=== PATIENT | female | born 1985 | race Caucasian/White ===

== ENCOUNTER → 2018-02-26 13:45 | Outpatient (CLI) | payer OTHER, SELFPAY ==
--- NOTE | 2018-02-26 | DI.RAD.S_ITS ---
PROCEDURE: XR FOOT RT MIN 3V INDICATIONS: BILATERAL FOOT PAIN TECHNIQUE: 3 views of the foot were acquired. COMPARISON: None. FINDINGS: Bones: No fractures or dislocations. No suspicious bony lesions. Soft tissues: No tibiotalar joint effusion. Achilles tendon appears normal. IMPRESSION: No trauma found, no malalignment identified. Source of new pain is not seen. Minimal plantar fascial and Achilles tendon insertion spurring is incidentally noted at the posterior calcaneus. Dictated by: Sergio Valentine M.D. on 02/26/2018 at 15:16 Approved by: Sergio Valentine M.D. on 02/26/2018 at 15:17
--- NOTE | 2018-02-26 | DI.RAD.S_ITS ---
PROCEDURE: XR FOOT LT MIN 3V INDICATIONS: BILATERAL FOOT PAIN TECHNIQUE: 3 views of the foot were acquired. COMPARISON: None. FINDINGS: Bones: No fractures or dislocations. No suspicious bony lesions. Soft tissues: No tibiotalar joint effusion. Achilles tendon appears normal. IMPRESSION: No trauma found, source of foot pain is not seen. Dictated by: Sergio Valentine M.D. on 02/26/2018 at 15:16 Approved by: Sergio Valentine M.D. on 02/26/2018 at 15:16
== END ==
PROVIDERS: PCP Family Medicine; Visit Provider Family Medicine
DX: M79.671 Pain in right foot (principal); M79.672 Pain in left foot
CPT/HCPCS: 73630

== ENCOUNTER → 2018-11-12 14:23 | Outpatient (CLI) | payer OTHER, SELFPAY ==
--- NOTE | 2018-11-12 | DI.MG.S_ITS ---
BILATERAL DIGITAL DIAGNOSTIC MAMMOGRAM 3D/2D: 11/12/2018 CLINICAL: Right breast lump. Baseline exam. No prior exams were available for comparison. The tissue of both breasts is heterogeneously dense. This may lower the sensitivity of mammography. No significant masses, calcifications, or other findings are seen in either breast. IMPRESSION: INCOMPLETE: NEEDS ADDITIONAL IMAGING EVALUATION There is no abnormality seen in the right breast to correspond with the palpable abnormality in the upper inner quadrant, however, ultrasound is recommended. This exam was interpreted at Station ID: [id number]. NOTE: For mammograms, a report in lay terms will be sent to the patient. Approximately 15% of breast malignancies will not be visualized mammographically. In the management of a palpable breast mass, a negative mammogram must not discourage biopsy of a clinically suspicious lesion. Electronically Signed By: Julio Cesar esteves/aquiles:11/12/2018 15:00:21 ACR BI-RADS Category 0: Incomplete [id number]
--- NOTE | 2018-11-12 | DI.US.S_ITS ---
LIMITED ULTRASOUND OF RIGHT BREAST: 11/12/2018 CLINICAL: Palpable right breast lump. No prior exams were available for comparison. Real-time ultrasound of the right breast 2 o'clock region was performed on the area of interest. IMPRESSION: NEGATIVE There is no sonographic evidence of malignancy. There is no abnormality seen in the right breast to correspond with the palpable abnormality at 2 o'clock, however, clinical followup is recommended. This exam was interpreted at Station ID: [id number]. Electronically Signed By: Julio Cesar esteves/aquiles:11/12/2018 15:48:17 letter sent: Clinical Evaluation Ultrasound BI-RADS: 1 Negative
== END ==
PROVIDERS: PCP Family Medicine; Visit Provider Family Medicine
DX: R92.8 Other abnormal and inconclusive findings on diagnostic imaging of breast (principal); N63.12 Unspecified lump in the right breast, upper inner quadrant
CPT/HCPCS: 76642; 77066; G0279

== ENCOUNTER → 2020-07-07 12:12 | Outpatient (CLI) | payer OTHER, SELFPAY ==
--- NOTE | 2020-07-07 | DI.US.S_ITS ---
PROCEDURE: US PELVIC COMPLETE INDICATIONS: IUD PLACEMENT TECHNIQUE: Real-time scanning was performed of the pelvic organs, with image documentation. Additional endovaginal scanning was necessary due to incomplete visualization of the adnexal and endometrial structures by transabdominal scanning. COMPARISON: None. FINDINGS: Uterus: Uterus is normal in size at 6.4 x 4.3 x 5.5 cm. The endometrium measures 3.3 mm in combined thickness. An IUD is seen at its expected location. Ovaries: The right ovary measures 4.1 x 2 x 3.2 cm. The left ovary measures 3.8 x 2.7 x 2.8 cm. The ovaries have a normal sonographic appearance. No adnexal masses are seen. Other: No pathologic free abdominal or pelvic fluid. IMPRESSION: The IUD is seen at its expected location. Dictated by: Saud Rockwell M.D. on 07/07/2020 at 12:25 Approved by: Saud Rockwell M.D. on 07/07/2020 at 12:26
== END ==
PROVIDERS: PCP Family Medicine; Referring Provider Family Medicine; Visit Provider Family Medicine
DX: Z30.431 Encounter for routine checking of intrauterine contraceptive device (principal)
CPT/HCPCS: 76830; 76856

== ENCOUNTER → 2021-08-23 12:43 | Outpatient (CLI) | payer OTHER, SELFPAY ==
--- NOTE | 2021-08-23 | DI.RAD.S_ITS ---
PROCEDURE: XR FOOT RT MIN 3V INDICATIONS: Pain in right foot TECHNIQUE: 3 views of the foot were acquired. COMPARISON: [facility], , XR FOOT RT MIN 3V, 02/26/2018, 13:46. FINDINGS: Bones: No fractures or dislocations. No suspicious bony lesions. Soft tissues: No tibiotalar joint effusion. Achilles tendon appears normal. IMPRESSION: No acute radiographic findings. Dictated by: Eileen Cook M.D. on 08/23/2021 at 14:43 Approved by: Eileen Cook M.D. on 08/23/2021 at 14:43
== END ==
PROVIDERS: PCP Family Medicine; Referring Provider Family Medicine; Visit Provider Family Medicine
DX: M79.671 Pain in right foot (principal)
CPT/HCPCS: 73630

== ENCOUNTER → 2023-07-05 15:29 | Outpatient (CLI) | payer OTHER, SELFPAY ==
--- NOTE | 2023-07-05 | DI.MRI.S_ITS ---
PROCEDURE: MR ANKLE RT WO CON INDICATIONS: PLANTAR FASCIAL FIBROMATOSIS TECHNIQUE: Noncontrast sagittal T1 spin echo and T2 fast spin echo with fat saturation, axial proton density fast spin echo and T2 fast spin echo with fat saturation, coronal T1 spin echo and T2 fast spin echo with fat saturation through the ankle/hindfoot. COMPARISON: [facility], CR, XR CALCANEUS RIGHT, 06/06/2023, 12:52. FINDINGS: Image quality: Excellent. Bones and joints: No acute trabecular bone injury or fracture. No hindfoot coalitions. No osteochondral injuries of the talar dome. Mild spurring seen at the dorsal aspect of the talonavicular joint that may be related to a remote prior injury or degeneration. Medial structures: The deltoid ligament and the spring ligament complex are intact. Mild distal posterior tibialis tenosynovitis. The flexor digitorum longus and flexor hallucis longus tendons are intact. The posterior tibial neurovascular bundle appears normal within the tarsal tunnel, without extrinsic mass effect. Lateral structures: Thickening of the anterior tibiofibular ligament may be secondary to a prior sprain. Posterior tibiofibular ligament is intact. Remote prior low-grade sprains of the anterior talofibular ligament and the calcaneofibular ligament. Posterior talofibular ligament also appears intact. The peroneus longus and brevis tendons demonstrate mild tendinosis and tenosynovitis. A lobular cyst is seen extending superiorly from the lateral sinus tarsi measuring approximately 2.0 x 1.2 x 2.6 cm. Anterior structures: The tibialis anterior, extensor hallucis longus, and extensor digitorum longus tendons appear intact. Posterior and plantar structures: Achilles tendon is intact. Mild focal fluid signal is seen at the origin of the plantar fascia that is suspicious for partial tearing. There is mild adjacent soft tissue and osseous edema. No acute osseous fracture. Findings are superimposed on chronic fascial thickening. No abductor digiti minimi muscle atrophy to suggest Pierre neuropathy. IMPRESSION: 1. Focal partial tearing of the central band of the plantar fascia at the origin with mild surrounding soft tissue and osseous edema. No acute osseous fracture. Findings are superimposed on mild chronic fasciitis. 2. Mild distal posterior tibialis tenosynovitis. 3. Remote prior low-grade sprain of the anterior tibiofibular ligament. Remote low-grade sprains are also seen at the anterior talofibular ligament and the calcaneofibular ligament. 4. Mild peroneus brevis and longus tenosynovitis. Approved by: Ulises Alva M.D. on 07/06/2023 at 12:36
== END ==
PROVIDERS: PCP Family Medicine; Referring Provider Podiatrist; Visit Provider Podiatrist
DX: M72.2 Plantar fascial fibromatosis (principal); S96.811A Strain of other specified muscles and tendons at ankle and foot level, right foot, initial encounter; S93.431A Sprain of tibiofibular ligament of right ankle, initial encounter; S93.491A Sprain of other ligament of right ankle, initial encounter; S93.411A Sprain of calcaneofibular ligament of right ankle, initial encounter; M65.871 Other synovitis and tenosynovitis, right ankle and foot
CPT/HCPCS: 73721

== ENCOUNTER 2023-07-07 04:00 | Emergency (ER) | payer OTHER, SELFPAY ==
[2023-07-07] VITALS (8 sets, daily range): BP systolic 111–142; BP diastolic 63–89; PULSE 57–72; RESP 16–18; TEMP 36.6; O2SAT 97–100; BMI 40.2
--- NOTE | 2023-07-07 04:04 | ED.GENADULT ---
HPI - General Adult <Naty Hardy DO - Last Filed: 07/08/23 01:18> General Chief complaint: Back Pain/Injury Stated complaint: right side/mid back pain Time Seen by Provider: 07/07/23 04:02 Source: patient, RN notes reviewed and old records reviewed Mode of arrival: Ambulatory Limitations: no limitations History of Present Illness HPI narrative: 38-year-old female with history of plantar fasciitis who presents with complaint of sudden onset of right mid back/flank pain that radiates to the front. Patient woke up from sleep at about 230 this morning has been persistent since then. Patient states no fevers or chills. She has had nausea but no vomiting. States no chest pain shortness of breath. Did have some diarrhea like stools earlier but no black or blood. No dysuria, urgency frequency or hematuria that she appreciates. No new vaginal bleeding or discharge. Patient states she has not had similar pain past. She states movement does not seem to make it particularly worse. No rash or skin changes. Denies any daily medications does take meloxicam PRN but rarely. No recent surgeries. No tobacco, occasional alcohol, no recreational drugs. Dr. Ramos is her primary care. Related Data Home Medications Medication Instructions Recorded Confirmed levonorgestrel 21 mcg/24 hours (8 52 mg INTRAU ##0 05/23/16 02/08/22 yrs) 52 mg intrauterine device (Mirena) Previous Rx's Medication Instructions Recorded hydrocodone 5 mg-acetaminophen 325 1 tab PO Q6-8H PRN pain #10 tabs 07/07/23 mg tablet Allergies Allergy/AdvReac Type Severity Reaction Status Date / Time No Known Drug Allergies Allergy Verified 06/08/23 09:22 Review of Systems <Naty Hardy DO - Last Filed: 07/08/23 01:18> Review of Systems ROS Unobtainable: All systems reviewed & are unremarkable except as noted in HPI and below Patient History <Naty Hardy DO - Last Filed: 07/08/23 01:18> Medical History Obstructive sleep apnea of adult Surgical History History of third molar tooth extraction Status post delivery (03/09/16) Social History Smoking Status: Never smoker Smoking Status: Never smoker Exam <Naty Hardy DO - Last Filed: 07/08/23 01:18> Narrative Exam Narrative: GENERAL: Alert and oriented x three, female in moderate distress HEENT: Head normocephalic, atraumatic, EOMI, pupils reactive, face symmetric, moist mucous membranes NECK: Supple, full range of motion CARDIOVASCULAR: Regular rate and rhythm without murmurs, rubs or gallops. RESPIRATORY: Breath sounds equal bilaterally, no wheezes rales or rhonchi. ABDOMEN: Soft, nontender. Normoactive bowel sounds all 4 quadrants. No guarding or rebound, rigidity, no mass, no bruit or pulsatile mass : No CVA tenderness bilaterally EXTREMITIES: Normal range of motion, no clubbing or edema. Neurovascularly intact NEUROLOGICAL: Cranial nerves II through XII grossly intact. Moving all extremities SKIN: Warm, dry, no petechiae, no rashes or lesions. Initial Vital Signs Initial Vital Signs: Vital Signs Temperature 98 F 07/07/23 04:06 Pulse Rate 70 07/07/23 04:06 Respiratory Rate 16 07/07/23 04:06 Blood Pressure 142/89 H 07/07/23 04:06 Pulse Oximetry 100 07/07/23 04:06 Oxygen Delivery Method Room Air 07/07/23 04:06 <Dalia Warren MD - Last Filed: 07/07/23 08:05> Initial Vital Signs Initial Vital Signs: Vital Signs Temperature 98 F 07/07/23 04:06 Pulse Rate 70 07/07/23 04:06 Respiratory Rate 16 07/07/23 04:06 Blood Pressure 142/89 H 07/07/23 04:06 Pulse Oximetry 100 07/07/23 04:06 Oxygen Delivery Method Room Air 07/07/23 04:06 Course <Naty Hardy DO - Last Filed: 07/08/23 01:18> Orders Ordered: Discontinued Medications Acetaminophen (Acetaminophen 325 Mg Tablet) 975 mg PO NOW ONE Stop: 07/07/23 05:36 Last Admin: 07/07/23 07:24 Dose: Not Given Documented By: RB Sodium Chloride (Normal Saline 0.9%) 1,000 mls @ 1,000 mls/hr IV BOLUS ONE Stop: 07/07/23 05:23 Last Infusion: 07/07/23 05:49 Dose: Infused Documented By: Admin: 07/07/23 04:43 Dose: 1,000 mls/hr Documented By: GC Ketorolac Tromethamine (Ketorolac 30 Mg/Ml Vial) 15 mg IV NOW ONE Stop: 07/07/23 04:25 Last Admin: 07/07/23 04:42 Dose: 15 mg Documented By: GC Morphine Sulfate (Morphine 2 Mg/Ml Inj) 2 mg IV NOW ONE Stop: 07/07/23 05:33 Last Admin: 07/07/23 07:24 Dose: Not Given Documented By: RB Morphine Sulfate (Morphine 4 Mg/Ml Inj) 4 mg IV NOW ONE Stop: 07/07/23 05:45 Last Admin: 07/07/23 05:49 Dose: 4 mg Documented By: VALERIA Vital Signs Vital signs: Vital Signs - 8 hr 07/07/23 04:06 07/07/23 05:45 07/07/23 06:00 Temperature 98 F Pulse Rate 70 72 62 Respiratory Rate 16 18 16 Blood Pressure 142/89 H 131/72 125/71 Pulse Oximetry 100 99 98 Oxygen Delivery Method Room Air Room Air Room Air 07/07/23 06:30 07/07/23 07:00 Temperature Pulse Rate 57 L 71 Respiratory Rate 16 16 Blood Pressure 113/67 111/63 Pulse Oximetry 97 97 Oxygen Delivery Method Room Air Room Air <Dalia Warren MD - Last Filed: 07/07/23 08:05> Orders Ordered: Discontinued Medications Acetaminophen (Acetaminophen 325 Mg Tablet) 975 mg PO NOW ONE Stop: 07/07/23 05:36 Last Admin: 07/07/23 07:24 Dose: Not Given Documented By: RB Sodium Chloride (Normal Saline 0.9%) 1,000 mls @ 1,000 mls/hr IV BOLUS ONE Stop: 07/07/23 05:23 Last Infusion: 07/07/23 05:49 Dose: Infused Documented By: Admin: 07/07/23 04:43 Dose: 1,000 mls/hr Documented By: GC Ketorolac Tromethamine (Ketorolac 30 Mg/Ml Vial) 15 mg IV NOW ONE Stop: 07/07/23 04:25 Last Admin: 07/07/23 04:42 Dose: 15 mg Documented By: GC Morphine Sulfate (Morphine 2 Mg/Ml Inj) 2 mg IV NOW ONE Stop: 07/07/23 05:33 Last Admin: 07/07/23 07:24 Dose: Not Given Documented By: RB Morphine Sulfate (Morphine 4 Mg/Ml Inj) 4 mg IV NOW ONE Stop: 07/07/23 05:45 Last Admin: 07/07/23 05:49 Dose: 4 mg Documented By: DK Vital Signs Vital signs: Vital Signs - 8 hr 07/07/23 04:06 07/07/23 05:45 07/07/23 06:00 Temperature 98 F Pulse Rate 70 72 62 Respiratory Rate 16 18 16 Blood Pressure 142/89 H 131/72 125/71 Pulse Oximetry 100 99 98 Oxygen Delivery Method Room Air Room Air Room Air 07/07/23 06:30 07/07/23 07:00 Temperature Pulse Rate 57 L 71 Respiratory Rate 16 16 Blood Pressure 113/67 111/63 Pulse Oximetry 97 97 Oxygen Delivery Method Room Air Room Air Medical Decision Making <Naty Hardy, - Last Filed: 07/08/23 01:18> Lab Data 07/07/23 04:35 07/07/23 04:35 Labs: Lab Results 07/07/23 07/07/23 Range/Units 04:30 04:35 WBC 7.5 (4.5-11.0) X10^3/uL RBC 4.37 (4.0-5.2) X10^6/uL Hgb 13.2 (12.0-16.0) g/dL Hct 38.8 (36-46) % MCV 89.0 (80-100) fL MCH 30.2 (26-34) PG MCHC 33.9 (30-36) % RDW 13.3 (11.6-14.8) % Plt Count 166 (150-400) X10^3/uL Neut % (Auto) 58.8 (50-75) % Lymph % (Auto) 31.0 (25-40) % [place] % (Auto) 7.7 (3-14) % Eos % (Auto) 2.1 (2-4) % Baso % (Auto) 0.4 (0-2) % Neut # (Auto) 4400 (4405-2619) /uL Lymph # (Auto) 2300 (6159-8452) /uL [place] # (Auto) 600 (0-900) /uL Eos # (Auto) 200 (0-450) /uL Baso # (Auto) 0 (0-100) /uL Sodium 140 (137-145) mmol/L Potassium 4.3 (3.4-5.1) mmol/L Chloride 107 (98-107) mmol/L Carbon Dioxide 24 (22-32) mmol/L BUN 12 (7-17) mg/dL Creatinine 0.72 (0.52-1.04) mg/dL Estimated GFR > 60 (>60) mL/min BUN/Creatinine Ratio 16.7 (6-22) Glucose 111 H (70-100) mg/dL Calcium 9.6 (8.4-10.2) mg/dL Total Bilirubin 0.4 (0.2-1.3) mg/dL AST 28 (14-36) IU/L ALT 33 (<35) IU/L Alkaline Phosphatase 59 (38-126) U/L Total Protein 7.5 (6.3-8.2) g/dL Albumin 4.2 (3.5-5.0) g/dL Globulin 3.3 (1.7-4.1) g/dL Albumin/Globulin Ratio 1.3 (1.0-2.8) Lipase 80 (23-300) U/L Urine RBC None seen (0-5/HPF) Urine WBC None seen (0-5/HPF) Ur Squamous Epith Cells 0-1 /hpf (0-5/HPF) Urine Bacteria None seen (None) Ur Culture Indicated? Cult not indicated Vol Urine Centrifuged 10ml (spun) Point of Care Testing Test Results Negative Urine Dip Bedside Urine Glucose Negative Bedside Urine Bilirubin - Negative Bedside Urine Ketone - Negative Urine Specific [place] 1.025 Bedside Urine Occult Blood +/- Bedside Urine pH 6.0 Bedside Urine Protein - Negative Bedside Urine Urobilinogen - Negative Bedside Urine Nitrite - Negative Bedside Urine Leukocytes - Negative Esterase Point of care testing: Point of Care Testing Test Results Negative Urine Dip Bedside Urine Glucose Negative Bedside Urine Bilirubin - Negative Bedside Urine Ketone - Negative Urine Specific [place] 1.025 Bedside Urine Occult Blood +/- Bedside Urine pH 6.0 Bedside Urine Protein - Negative Bedside Urine Urobilinogen - Negative Bedside Urine Nitrite - Negative Bedside Urine Leukocytes - Negative Esterase MDM Narrative Medical decision making narrative: Patient signed out to Dr. Warren while awaiting CT KUB. Patient's labs overall appropriate, urine was negative was negative. Patient had some improvement with Toradol but still painful had Tylenol followed by narcotic pain medication in the feels much better afterwards. CC: Right-sided flank and mid back pain Complicating co-morbidities: Data collected from: patient Medical records reviewed: [employer] visit for IUD removal on June 08 of this year as well as sleep study neurologic visits from 2021 are reviewed Differential considered: Kidney stone, UTI, pyelonephritis, endomyometritis after IUD removal almost 1 month after procedure, pelvic inflammatory disease, ovarian torsion, ovarian cyst, appendicitis Exam documented above, pertinent findings include: Initially had right upper quadrant radiating to the back and right flank pain. After appropriate pain medication, exam is entirely benign Lab Test results independently reviewed as above. Pertinent findings: CBC is unremarkable with no leukocytosis Chemistries are unremarkable with normal kidney function, renal function. Lipase is at 80 suggesting absence of pancreatitis Imaging studies independently reviewed: CT KUB is ordered and shows no kidney stone, appendicitis, colitis, diverticulitis, bowel obstruction or alternate explanation. Noted is cholelithiasis without acute cholecystitis Treatments: Saline, Toradol, morphine, oral Tylenol Re-evaluations: Patient is re-evaluated. Currently pain-free. Reviewed findings Discussion: 38-year-old woman with right upper quadrant pain for the last 48 hours last night was unable to sleep. Radiates through to her back. No fevers no jaundice. Workup shows no evidence of infection, kidney abnormalities liver abnormalities or acute pancreatitis. CT scan suggests no significant intra-abdominal abscesses, infection, kidney stones but evidence of cholelithiasis without cholecystitis is present. We talked about gallbladder colic which is what I believe she is experiencing. She notes that her sister recently had her gallbladder out for similar complaints. We talked about use of pain medications, please see instructions below for details regarding that discussion. Discussed the reasons to return to the emergency department, dietary suggestions that may reduce her risk of recurrent gallbladder colic episodes and the importance of following up with General surgery to discuss need for and timing of outpatient gallbladder surgery. Questions were answered she is entirely pain-free at time of discharge and safe to go home <Dalia Warren MD - Last Filed: 07/07/23 08:05> Lab Data Labs: Lab Results 07/07/23 07/07/23 Range/Units 04:30 04:35 WBC 7.5 (4.5-11.0) X10^3/uL RBC 4.37 (4.0-5.2) X10^6/uL Hgb 13.2 (12.0-16.0) g/dL Hct 38.8 (36-46) % MCV 89.0 (80-100) fL MCH 30.2 (26-34) PG MCHC 33.9 (30-36) % RDW 13.3 (11.6-14.8) % Plt Count 166 (150-400) X10^3/uL Neut % (Auto) 58.8 (50-75) % Lymph % (Auto) 31.0 (25-40) % [place] % (Auto) 7.7 (3-14) % Eos % (Auto) 2.1 (2-4) % Baso % (Auto) 0.4 (0-2) % Neut # (Auto) 4400 (9147-6906) /uL Lymph # (Auto) 2300 (4125-2319) /uL [place] # (Auto) 600 (0-900) /uL Eos # (Auto) 200 (0-450) /uL Baso # (Auto) 0 (0-100) /uL Sodium 140 (137-145) mmol/L Potassium 4.3 (3.4-5.1) mmol/L Chloride 107 (98-107) mmol/L Carbon Dioxide 24 (22-32) mmol/L BUN 12 (7-17) mg/dL Creatinine 0.72 (0.52-1.04) mg/dL Estimated GFR > 60 (>60) mL/min BUN/Creatinine Ratio 16.7 (6-22) Glucose 111 H (70-100) mg/dL Calcium 9.6 (8.4-10.2) mg/dL Total Bilirubin 0.4 (0.2-1.3) mg/dL AST 28 (14-36) IU/L ALT 33 (<35) IU/L Alkaline Phosphatase 59 (38-126) U/L Total Protein 7.5 (6.3-8.2) g/dL Albumin 4.2 (3.5-5.0) g/dL Globulin 3.3 (1.7-4.1) g/dL Albumin/Globulin Ratio 1.3 (1.0-2.8) Lipase 80 (23-300) U/L Urine RBC None seen (0-5/HPF) Urine WBC None seen (0-5/HPF) Ur Squamous Epith Cells 0-1 /hpf (0-5/HPF) Urine Bacteria None seen (None) Ur Culture Indicated? Cult not indicated Vol Urine Centrifuged 10ml (spun) Point of Care Testing Test Results Negative Urine Dip Bedside Urine Glucose Negative Bedside Urine Bilirubin - Negative Bedside Urine Ketone - Negative Urine Specific [place] 1.025 Bedside Urine Occult Blood +/- Bedside Urine pH 6.0 Bedside Urine Protein - Negative Bedside Urine Urobilinogen - Negative Bedside Urine Nitrite - Negative Bedside Urine Leukocytes - Negative Esterase Point of care testing: Point of Care Testing Test Results Negative Urine Dip Bedside Urine Glucose Negative Bedside Urine Bilirubin - Negative Bedside Urine Ketone - Negative Urine Specific [place] 1.025 Bedside Urine Occult Blood +/- Bedside Urine pH 6.0 Bedside Urine Protein - Negative Bedside Urine Urobilinogen - Negative Bedside Urine Nitrite - Negative Bedside Urine Leukocytes - Negative Esterase MDM Narrative Medical decision making narrative: CC: Right-sided flank and mid back pain Complicating co-morbidities: Data collected from: patient Medical records reviewed: [employer] visit for IUD removal on June 08 of this year as well as sleep study neurologic visits from 2021 are reviewed Differential considered: Kidney stone, UTI, pyelonephritis, endomyometritis after IUD removal almost 1 month after procedure, pelvic inflammatory disease, ovarian torsion, ovarian cyst, appendicitis Exam documented above, pertinent findings include: Initially had right upper quadrant radiating to the back and right flank pain. After appropriate pain medication, exam is entirely benign Lab Test results independently reviewed as above. Pertinent findings: CBC is unremarkable with no leukocytosis Chemistries are unremarkable with normal kidney function, renal function. Lipase is at 80 suggesting absence of pancreatitis Imaging studies independently reviewed: CT KUB is ordered and shows no kidney stone, appendicitis, colitis, diverticulitis, bowel obstruction or alternate explanation. Noted is cholelithiasis without acute cholecystitis Treatments: Saline, Toradol, morphine, oral Tylenol Re-evaluations: Patient is re-evaluated. Currently pain-free. Reviewed findings Discussion: 38-year-old woman with right upper quadrant pain for the last 48 hours last night was unable to sleep. Radiates through to her back. No fevers no jaundice. Workup shows no evidence of infection, kidney abnormalities liver abnormalities or acute pancreatitis. CT scan suggests no significant intra-abdominal abscesses, infection, kidney stones but evidence of cholelithiasis without cholecystitis is present. We talked about gallbladder colic which is what I believe she is experiencing. She notes that her sister recently had her gallbladder out for similar complaints. We talked about use of pain medications, please see instructions below for details regarding that discussion. Discussed the reasons to return to the emergency department, dietary suggestions that may reduce her risk of recurrent gallbladder colic episodes and the importance of following up with General surgery to discuss need for and timing of outpatient gallbladder surgery. Questions were answered she is entirely pain-free at time of discharge and safe to go home Discharge Plan Departure Patient Disposition: Home Clinical Impression: Gallbladder colic Cholelithiasis Qualifiers: Cholelithiasis location: gallbladder Cholecystitis presence: without cholecystitis Instructions: DI for General Gallbladder Conditions Activity Restrictions/Additional Instructions: Thank you for coming in today Your workup is actually quite reassuring. There is no evidence of significant infection, liver problems, kidney problems or intra-abdominal abscesses. The CT scan shows that you have gallstones. There is no evidence of acute gallbladder disease. With your description of the acute pain radiating through to your back, I suspect that you are experiencing gallbladder colic. Eating the lowest fat diet you are able to tolerate can be helpful in reducing gallbladder pain. Often times when she began having pain it does increase. Using 400 mg of ibuprofen (2 nohb-pif-qursror pills) and 1 Tylenol every 6 hours can be very helpful in controlling pain. For severe pain using 400 mg of ibuprofen and 1 Percocet can be helpful. If you do to use to use the Percocet please remember it is a narcotic, can cause constipation and should not be taken while driving or trying to do important cognitive tasks I would encourage you to schedule an appointment with our surgical group. The phone number for [facility] is [phone]. Please explain to them that you are in the emergency department with gallstones and would like to come in for consultation Reasons to return to the emergency department and things that can become acutely problematic include fevers, any type of jaundice (yellow coloring to your skin), pain that can not be controlled with [id number] medications or new findings. Prescriptions: New hydrocodone-acetaminophen 5-325 mg tablet 1 tab PO Q6-8H PRN (Reason: pain) Qty: 10 0RF No Action levonorgestrel [Mirena] 1 EACH intrauterine device 52 mg INTRAU Qty: 0 Referrals: Marcelle Ramos MD [Primary Care Provider] - Stand Alone Forms: Patient Portal/API
--- NOTE | 2023-07-07 04:24 | DI.CT.S_ITS ---
PROCEDURE: CT KIDNEY URETER BLADDER (KUB) INDICATIONS: r mid/flank pain, radiates to front TECHNIQUE: Axial sections were acquired from the lung bases to the pubic symphysis. Coronal and sagittal reformats were performed. For radiation dose reduction, the following was used: automated exposure control, adjustment of mA and/or kV according to patient size. COMPARISON: None. FINDINGS: Image quality: Diagnostic. Lower Chest: No significant findings. URINARY: Right Kidney: No stones or hydronephrosis. Right Ureter: No hydroureter. Left Kidney: No stones or hydronephrosis. Left Ureter: No hydroureter. Bladder: Normal wall thickness. No stones. ABDOMEN: Liver: No contour-deforming solid mass. Gallbladder: At least 2 gallstones can be seen within the gallbladder. No additional CT findings of cholecystitis are seen. Biliary ducts: No biliary dilation. Pancreas: No ductal dilation. Spleen: Size is within normal limits. Adrenal Glands: No adrenal nodules. Stomach and Bowel: Normal colonic caliber, without significant wall thickening. A normal appendix is noted. No dilated loops of small bowel are seen. Peritoneum: No abnormal intraperitoneal fluid. No free air. Ventral Wall: A mild periumbilical hernia is seen, containing fat. Abdominal Nodes: No enlarged retroperitoneal or mesenteric lymph nodes. Vessels: Aorta and inferior vena cava are normal in size. PELVIS: Pelvic Organs: The uterus appears normal for age. No adnexal masses are seen. Pelvic Nodes: Unremarkable. Miscellaneous: No inguinal hernias are seen. Bones: Unremarkable. IMPRESSION: No obstructing stones or hydronephrosis. Normal appendix. Additional findings: Gallstones Small fat containing periumbilical hernia Note: No significant discrepancy from the preliminary report. Dictated by: Saud Rockwell M.D. on 07/07/2023 at 8:30 Approved by: Saud Rockwell M.D. on 07/07/2023 at 8:32
[2023-07-07] MEDS: KETOROLAC 30 MG/ML VIAL 15 MG IV (04:42)
[2023-07-07] MEDS: SODIUM CHLORIDE 0.9% 1,000 ML 1000 ML IV (04:43)
[2023-07-07 04:49] LABS: Add Manual Diff / Slide Review NO; Basophils Absolute Auto 0 /uL (0-100); Basophils Percent Auto 0.4 % (0-2); Eosinophils Absolute Auto 200 /uL (0-450); Eosinophils Percent Auto 2.1 % (2-4); Hematocrit 38.8 % (36-46); Hemoglobin 13.2 g/dL (12.0-16.0); Lymphocytes Absolute Auto 2300 /uL (1100-4500); Mean Corpuscular HGB Conc 33.9 % (30-36); Mean Corpuscular Hemoglobin 30.2 PG (26-34); Monocytes Absolute Auto 600 /uL (0-900); Monocytes Percent Auto 7.7 % (3-14); Neutrophils Absolute Auto 4400 /uL (1500-7000); Neutrophils Percent Auto 58.8 % (50-75); Platelet Count 166 X10^3/uL (150-400); Red Blood Cell Count 4.37 X10^6/uL (4.0-5.2); Red Cell Distribution Width 13.3 % (11.6-14.8); White Blood Cell Count 7.5 X10^3/uL (4.5-11.0)
[2023-07-07 05:01] LABS: Alanine Aminotransferase 33 IU/L (<35); Albumin 4.2 g/dL (3.5-5.0); Albumin Globulin Ratio 1.3 (1.0-2.8); Alkaline Phosphatase 59 U/L (38-126); Aspartate Aminotransferase 28 IU/L (14-36); BUN Creatinine Ratio 16.7 (6-22); Bilirubin Total 0.4 mg/dL (0.2-1.3); Blood Urea Nitrogen 12 mg/dL (7-17); Calcium 9.6 mg/dL (8.4-10.2); Carbon Dioxide 24 mmol/L (22-32); Chloride 107 mmol/L (98-107); Estimated Glomerular Filt Rate > 60 mL/min (>60); Globulin 3.3 g/dL (1.7-4.1); Glucose 111 mg/dL (70-100); HEMOLYSIS < 15 (0-50); Lipase 80 U/L (23-300); Potassium 4.3 mmol/L (3.4-5.1); Sodium 140 mmol/L (137-145); Total Protein 7.5 g/dL (6.3-8.2)
[2023-07-07 05:24] LABS: Urine Volume 10mL (spun)
[2023-07-07 05:25] LABS: Bacteria Urine None Seen; Culture Indicated Urine Cult Not Indicated; RBC Urine None Seen (0-5/HPF); Squamous Epithelial Cell Urine 0-1 /HPF (0-5/HPF); WBC Urine None Seen (0-5/HPF)
[2023-07-07] MEDS: MORPHINE 4 MG/ML INJ IV (05:49)
== END 2023-07-07 08:24 | disposition home or self-care (01) ==
PROVIDERS: Emergency Medicine; Emergency Provider Emergency Medicine; PCP Family Medicine
DX: K80.20 Calculus of gallbladder without cholecystitis without obstruction (principal); M54.6 Pain in thoracic spine
CPT/HCPCS: 36415; 74176; 80053; 81003; 81015; 81025; 83690; 85025; 96361; 96374; 96375; 99284; J1885; J2270

== ENCOUNTER → 2023-07-16 08:26 | Outpatient (CLI) | payer OTHER, SELFPAY ==
--- NOTE | 2023-07-16 08:30 | DI.US.S_ITS ---
PROCEDURE: US ABDOMEN COMPLETE INDICATIONS: Calculus of gallbladder without cholecystitis TECHNIQUE: Real-time scanning was performed of the abdominal and retroperitoneal organs, with image documentation. COMPARISON: [facility], CT, CT KIDNEY URETER BLADDER (KUB), 07/07/2023, 4:55. FINDINGS: Liver: Measures 15.6 cm. Increased in echogenicity. Main portal vein demonstrates hepatopetal flow. Gallbladder: Nondilated. Mobile gallstone measuring 1.5 cm. Normal gallbladder wall thickness. No pericholecystic fluid. Negative sonographic Painting's sign. Biliary ducts: Intrahepatic bile ducts are non-dilated. Extrahepatic bile duct caliber measures 5 mm. Normal is 6-7 mm or less in diameter, or 10 mm or less post-cholecystectomy. Pancreas: Visualized portions of the pancreas are sonographically normal. Tail is not well seen due to bowel gas. Spleen: Spleen is normal in size and homogeneous in echotexture. Measures 11.4 cm. Kidneys: Kidneys are normal in size and echotexture. Right kidney measures 11.1 cm long; left kidney measures 10.5 cm long. No hydronephrosis or nephrolithiasis. No solid masses. Aorta: Visualized aorta is normal in caliber at less than 3 cm. Iliacs: Proximal common iliac arteries are normal in caliber at less than 2.5 cm. IVC: Intrahepatic inferior vena cava is patent. Miscellaneous: No free abdominal fluid. IMPRESSION: 1. No acute cholecystitis. 2. Mobile gallstone measuring 1.5 cm. 3. No hydronephrosis. Dictated by: Yung Bhagat M.D. on 07/16/2023 at 10:02 Approved by: Yung Bhagat M.D. on 07/16/2023 at 10:06
== END ==
LOC: US 08:28
PROVIDERS: PCP Family Medicine; Referring Provider Family Medicine; Visit Provider Family Medicine
DX: K80.20 Calculus of gallbladder without cholecystitis without obstruction (principal)
CPT/HCPCS: 76700

== ENCOUNTER 2023-08-21 09:25 | Day surgery (SDC) | payer OTHER, SELFPAY ==
[2023-08-09 08:37] VITALS: BMI 39.9
[2023-08-21] VITALS (15 sets, daily range): BP systolic 101–120; BP diastolic 63–75; PULSE 51–80; RESP 11–21; TEMP 36.3–36.4; O2SAT 85–100; BMI 40.1
--- NOTE | 2023-08-21 | PATH_ITS ---
[facility] Accession Number: [id number] No. of containers..01 Tissue . 01 Material submitted: . gallbladder - GALLBLADDER AND CONTENTS . 01 Diagnosis: GALLBLADDER AND CONTENTS, CHOLECYSTECTOMY: Cholelithiasis with cholesterolosis. No evidence of neoplasm. MRV 08/24/2023 1019 Local . 01 Electronically signed: . Yaw Cruz MD, PhD, Pathologist NPI- [id number] . 01 Gross description: . Received in formalin with two identifiers and gallbladder and contents, is an intact gallbladder measuring 6.5 x 2.7 x 2.5 cm with an unremarkable external surface. The cystic duct margin is inked blue, and no pericystic lymph node is identified. The lumen contains a green, roughened calculus measuring 1.4 cm in greatest dimension admixed with green viscous bile not obstructing the cystic duct. The mucosa is green and velvety with numerous yellow areas of discoloration, and no polyps or lesions identified. The lee average 0.2 cm thick. Channeler Runner sections to include the cystic duct margin and full thickness sections are submitted in cassette A1. ([id number]) /MRV 08/22/2023 1352 Local . 01 Pathologist provided ICD-10: K80.70 . 01 CPT . 185918 Specimen Comment: A courtesy copy of this report has been sent to [phone] Performed at: 01 [facility] [address] [place] [address], [place], [place] [id number] MD Julio Cesar Camilo MD Phone: [phone]
[2023-08-21] MEDS: SCOPOLAMINE 1 PATCH TOP (10:02)
[2023-08-21] MEDS: LACTATED RINGERS 1,000 ML 42 ML IV ×2 (10:03→12:22)
[2023-08-21] MEDS: ACETAMINOPHEN 325 MG TABLET 975 MG PO (10:03)
--- NOTE | 2023-08-21 10:12 | PM.PREOP ---
Pre-operative Note COVID-19 COVID-19 status: Not tested Interval Note History & Physical reviewed/Exam performed by Physician: Yes Changes to H&P: No ASA Class (for procedural sedation): II
[2023-08-21] MEDS: CEFAZOLIN 2 GM/100 ML PREMIX 100 ML IV (10:51)
[2023-08-21] MEDS: BUPIVACAINE 0.5% (PF) 30 ML, EPINEPHrine 0.15 MG INJ (11:13)
--- NOTE | 2023-08-21 11:14 | SUR.OPER ---
Supine on padded OR bed, head on pillow, safety belt at thigh, left arm padded and tucked at side. Right arm secured on padded arm board <90 degrees abduction. Legs uncrossed. Padded footboard in place. Tape over blanket to secure lower legs.
--- NOTE | 2023-08-21 11:40 | P.OP_ITS ---
Operative Date/Time/Diagnoses Date of procedure: 08/21/23 Time of procedure: 11:41 Pre-op diagnosis: Cholelithiasis Post-op diagnosis: same Procedure & Clinicians Procedure: Laparoscopic cholecystectomy Same procedure as scheduled: Yes Surgeon: Jose Hernández Spot Welder Body Assembly: Donnell Bell Anesthesia Type: General Operative Notes Procedure in detail: The patient was given preoperative antibiotics. The patient was brought to the operating room and placed on the table in the supine position. General endotracheal anesthesia was induced. The abdomen was prepped and draped. A time-out was performed. We made a 1 cm infraumbilical incision. We dissected down to the base of the umbilical stalk using cautery. We grasped the umbilical stalk with a Ruddy clamp to elevate the abdominal wall. We scored the fascia in the midline with cautery. We pierced the peritoneum with a Peon clamp. The Elise port was placed and the abdomen was insufflated to 15 mmHg. A 5 mm 30 degree laparoscopic was inserted. There was no evidence of any injury from the entry. Next, we placed 5 mm ports in the subxiphoid position and right upper quadrant at the midclavicular line and anterior axillary line. The patient was then positioned in reverse Trendelenburg and the table was tilted to the left. The gallbladder was grasped at the dome and retracted cephalad. We then dissected the cystic structures with a combination of hook cautery and blunt d issection. We obtained a critical view. We placed clips on the cystic duct and artery and divided the cystic duct and artery sharply between the clips. The gallbladder was then dissected off the liver and placed in a specimen retrieval bag. We irrigated the right upper quadrant and all the aspirate returned clear. We then removed the 5 mm ports under direct vision we removed the Elise port. We then injected some local into the fascia and closed the fascia with 2 interrupted 0 Vicryl sutures. The skin incisions were closed with 4-0 Monocryl and Steri-Strips were applied. Band-Aids were applied over the Steri-Strips. EBL: 10 mL Specimen: Gallbladder and contents Donnell PARTIDA provided assistance with exposure, retraction and closure of incisions. Post-operative Condition: stable Disposition: PACU
[2023-08-21] MEDS: fentaNYL 100 MCG/2 ML INJ 25 MCG IV ×2 (12:19→12:26)
--- NOTE | 2023-08-21 12:31 | SUR.PHASEI ---
Report given to [facility]
[2023-08-21] MEDS: HYDROMORPHONE 1 MG INJ IV (12:43)
[2023-08-21] MEDS: ONDANSETRON 4 MG/2 ML INJ IV (12:43)
[2023-08-21] MEDS: OXYCODONE IR 5 MG TABLET PO (12:54)
== END 2023-08-21 13:43 | disposition home or self-care (01) ==
PROVIDERS: PCP Family Medicine; Referring Provider Surgery; Visit Provider Surgery
PROC: 0FT44ZZ Resection of Gallbladder, Percutaneous Endoscopic Approach (ICD-10-PCS; CPT 47562; principal; 2023-08-21 11:00)
DX: K80.20 Calculus of gallbladder without cholecystitis without obstruction (principal)
CPT/HCPCS: 47562; 81025; J0171; J0690; J1100; J1170; J1885; J2250; J2405; J2704; J3010

== ENCOUNTER → 2023-12-24 10:47 | Outpatient (CLI) | payer OTHER, SELFPAY ==
[2023-12-24 12:14] LABS: Add Manual Diff / Slide Review NO; Basophils Absolute Auto 0 /uL (0-100); Basophils Percent Auto 0.4 % (0-2); Eosinophils Absolute Auto 100 /uL (0-450); Eosinophils Percent Auto 1.2 % (2-4); Hematocrit 38.8 % (36-46); Lymphocytes Absolute Auto 2600 /uL (1100-4500); Mean Corpuscular HGB Conc 33.5 % (30-36); Mean Corpuscular Hemoglobin 29.9 PG (26-34); Mean Corpuscular Volume 89.4 fL (80-100); Monocytes Absolute Auto 400 /uL (0-900); Monocytes Percent Auto 5.5 % (3-14); Neutrophils Absolute Auto 4900 /uL (1500-7000); Neutrophils Percent Auto 60.9 % (50-75); Platelet Count 175 X10^3/uL (150-400); Red Blood Cell Count 4.34 X10^6/uL (4.0-5.2); Red Cell Distribution Width 13.4 % (11.6-14.8)
[2023-12-24 12:35] LABS: Alanine Aminotransferase 39 IU/L (<35); Albumin 4.3 g/dL (3.5-5.0); Albumin Globulin Ratio 1.7 (1.0-2.8); Alkaline Phosphatase 64 U/L (38-126); Aspartate Aminotransferase 21 IU/L (14-36); BUN Creatinine Ratio 16.4 (6-22); Bilirubin Total 0.5 mg/dL (0.2-1.3); Blood Urea Nitrogen 12 mg/dL (7-17); Calcium 9.9 mg/dL (8.4-10.2); Carbon Dioxide 22 mmol/L (22-32); Chloride 108 mmol/L (98-107); Cholesterol 280 mg/dL (140-199); Estimated Glomerular Filt Rate > 60 mL/min (>60); Globulin 2.6 g/dL (1.7-4.1); Glucose 90 mg/dL (70-100); HDL Cholesterol 52 mg/dL (40-60); HEMOLYSIS < 15 (0-50); LDL Cholesterol Calculated 181 mg/dL (<100); Potassium 4.5 mmol/L (3.4-5.1); Sodium 138 mmol/L (137-145); Total Protein 6.9 g/dL (6.3-8.2); Triglycerides 236 mg/dL (35-150)
[2023-12-24 13:05] LABS: Thyroid Stimulating Hormone 0.167 uIU/mL (0.47-4.68)
[2023-12-24 13:24] LABS: Vitamin B12 362 pg/mL (239-931)
== END ==
PROVIDERS: PCP Family Medicine; Referring Provider Family Medicine; Visit Provider Family Medicine
DX: Z00.01 Encounter for general adult medical examination with abnormal findings (principal); T14.8XXA Other injury of unspecified body region, initial encounter; M79.671 Pain in right foot; M72.2 Plantar fascial fibromatosis; K80.20 Calculus of gallbladder without cholecystitis without obstruction; F41.9 Anxiety disorder, unspecified; F32.1 Major depressive disorder, single episode, moderate; F32.0 Major depressive disorder, single episode, mild; D49.2 Neoplasm of unspecified behavior of bone, soft tissue, and skin; E53.8 Deficiency of other specified B group vitamins; E55.9 Vitamin D deficiency, unspecified; Z13.0 Encounter for screening for diseases of the blood and blood-forming organs and certain disorders involving the immune mechanism; E78.00 Pure hypercholesterolemia, unspecified
CPT/HCPCS: 36415; 80053; 80061; 82306; 82607; 84443; 85025

== ENCOUNTER → 2025-04-30 10:30 | Outpatient (CLI) | payer OTHER, SELFPAY ==
[2025-04-30 12:22] LABS: Alanine Aminotransferase 23 IU/L (<35); Albumin 4.4 g/dL (3.5-5.0); Albumin Globulin Ratio 1.6 (1.0-2.8); Alkaline Phosphatase 50 U/L (38-126); Blood Urea Nitrogen 8 mg/dL (7-17); Calcium 9.8 mg/dL (8.4-10.2); Carbon Dioxide 22 mmol/L (22-32); Chloride 108 mmol/L (98-107); Cholesterol 225 mg/dL (140-199); Estimated Glomerular Filt Rate > 60 mL/min (>60); Globulin 2.8 g/dL (1.7-4.1); Glucose 89 mg/dL (70-99); HDL Cholesterol 50 mg/dL (40-60); HEMOLYSIS < 15 (0-50); Potassium 4.5 mmol/L (3.4-5.1); Sodium 138 mmol/L (137-145); Total Protein 7.2 g/dL (6.3-8.2); Triglycerides 146 mg/dL (35-150); VLDL Cholesterol Calculated 29 mg/dL (2-30)
[2025-04-30 13:14] LABS: Vitamin B12 866 pg/mL (239-931)
== END ==
PROVIDERS: PCP Family Medicine; Referring Provider Family Medicine; Visit Provider Family Medicine
DX: E53.8 Deficiency of other specified B group vitamins (principal); E78.00 Pure hypercholesterolemia, unspecified; E83.52 Hypercalcemia; F32.0 Major depressive disorder, single episode, mild; F41.9 Anxiety disorder, unspecified; Z68.37 Body mass index [BMI] 37.0-37.9, adult
CPT/HCPCS: 36415; 80053; 80061; 82607

== ENCOUNTER → 2025-05-04 14:50 | Outpatient (CLI) | payer OTHER, SELFPAY ==
--- NOTE | 2025-05-04 14:52 | DI.RAD.S_ITS ---
PROCEDURE: XR SHOULDER RT MIN 2V INDICATIONS: Pain in right shoulder TECHNIQUE: 3 views of the shoulder were acquired. COMPARISON: None. FINDINGS: Bones: No fractures or dislocations. No suspicious bony lesions. Visualized ribs appear intact. Soft tissues: No suspicious soft tissue calcifications. IMPRESSION: No acute bony abnormality. Dictated by: Neil Umaña M.D. on 05/04/2025 at 20:55 Approved by: Neil Umaña M.D. on 05/04/2025 at 20:55
== END ==
PROVIDERS: PCP Family Medicine; Referring Provider Family Medicine; Visit Provider Family Medicine
DX: M25.511 Pain in right shoulder (principal)
CPT/HCPCS: 73030